=== PATIENT | female | born 1985 | race Caucasian/White ===

== ENCOUNTER 2021-01-11 09:16 | Inpatient (IN) | payer OTHER ==
[~2021-01-11] VITALS: Ht 154.9 cm; Wt 74.4 kg
[2021-01-11 11:49] LABS: HEMOGLOBIN 14.9 gm/dl (12.3-15.3); RED BLOOD COUNT 4.88 M/UL (4.00-5.10); WHITE BLOOD COUNT 26.2 K/UL (4.5-11.0)
[2021-01-11 12:10] LABS: BUN/CREATININE RATIO 15 (0-10)
[2021-01-11] MEDS ORDERED: OMEPRAZOLE40 MG PO (16:19)
[2021-01-11] MEDS ORDERED: VITAMIN D21250 MCG PO (16:19)
[2021-01-11] MEDS ORDERED: PAXIL 20 MG TAB20 MG PO (16:20)
[2021-01-11] MEDS ORDERED: BUSPIRONE HCL10 MG PO (16:20)
[2021-01-11] MEDS ORDERED: CYCLOBENZAPRINE10 MG PO (16:21)
[2021-01-11] MEDS ORDERED: SEROQUEL50 MG PO (16:21)
[2021-01-11] MEDS ORDERED: CYANOCOBAL1000 MCG/1 INJ (16:22)
[2021-01-11] MEDS ORDERED: CRESTOR 10 MG T10 MG PO (16:22)
[2021-01-11] MEDS ORDERED: VOLTAREN EC 2525 MG PO (16:22)
[2021-01-11] MEDS ORDERED: HYDROXYZINE HCL25 MG PO (16:23)
[2021-01-11] MEDS ORDERED: VITAMIN C500 M2 PO (16:23)
[2021-01-11] MEDS ORDERED: VENTOLIN HFA 66.7 GM INH (16:24)
[2021-01-12 05:33] LABS: BUN/CREATININE RATIO 10 (0-10)
[2021-01-12 05:49] LABS: HEMOGLOBIN 12.1 gm/dl (12.3-15.3); RED BLOOD COUNT 4.03 M/UL (4.00-5.10); WHITE BLOOD COUNT 17.2 K/UL (4.5-11.0)
[2021-01-13 06:31] LABS: HEMOGLOBIN 11.5 gm/dl (12.3-15.3); RED BLOOD COUNT 3.87 M/UL (4.00-5.10)
[2021-01-13 07:46] LABS: BUN/CREATININE RATIO 8 (0-10)
[2021-01-14 06:13] LABS: BUN/CREATININE RATIO 6 (0-10)
[2021-01-14 10:03] LABS: HEMOGLOBIN 11.5 gm/dl (12.3-15.3); RED BLOOD COUNT 3.96 M/UL (4.00-5.10)
[2021-01-14 10:09] LABS: WHITE BLOOD COUNT 8.3 K/UL (4.5-11.0)
[2021-01-15 04:26] LABS: HEMOGLOBIN 11.5 gm/dl (12.3-15.3); RED BLOOD COUNT 3.89 M/UL (4.00-5.10); WHITE BLOOD COUNT 8.3 K/UL (4.5-11.0)
[2021-01-15 05:02] LABS: BUN/CREATININE RATIO 6 (0-10)
[2021-01-16 06:31] LABS: HEMOGLOBIN 11.8 gm/dl (12.3-15.3)
[2021-01-16 06:55] LABS: BUN/CREATININE RATIO 8 (0-10)
[2021-01-16] MEDS ORDERED: FLAGYL500 MG PO (09:26)
[2021-01-16] MEDS ORDERED: CIPRO500 MG PO (09:26)
[2021-01-16] MEDS ORDERED: HYDROCODON-ACE1 EAC4 PO (10:46)
== END 2021-01-16 13:44 | disposition home or self-care (01) | DRG 871 ==
LOC: ER1 09:16 → CDU 15:25 → M/S 15:25
PROVIDERS: Physician Assistant; Surgery; ADMIT Internal Medicine
DX: A41.9 Sepsis, unspecified organism (principal); J18.9 Pneumonia, unspecified organism; A09 Infectious gastroenteritis and colitis, unspecified; K56.690 Other partial intestinal obstruction; Z20.822 Contact with and (suspected) exposure to COVID-19; E87.6 Hypokalemia; F41.9 Anxiety disorder, unspecified; K21.9 Gastro-esophageal reflux disease without esophagitis; E78.5 Hyperlipidemia, unspecified; F17.210 Nicotine dependence, cigarettes, uncomplicated; F31.9 Bipolar disorder, unspecified; Z98.51 Tubal ligation status; Z88.8 Allergy status to other drugs, medicaments and biological substances; Z56.0 Unemployment, unspecified
CPT/HCPCS: 36415; 71046; 74019; 80048; 80053; 80202; 81001; 83605; 83690; 83735; 84100; 84132; 84703; 85025; 85027; 87040; 94640; 94664; 94760; 96374; 96375; 99285; C9113; J1170; J1885; J2270; J2405; J2543; J3370; J7030; J7070; Q9967; U0002

== ENCOUNTER 2021-01-17 20:22 | Emergency (ER) | payer OTHER ==
[~2021-01-17 20:22] MED LIST: BUSPIRONE HCL10 MG PO; CIPRO500 MG PO; CRESTOR 10 MG T10 MG PO; CYANOCOBAL1000 MCG/1 INJ; CYCLOBENZAPRINE10 MG PO; FLAGYL500 MG PO; HYDROCODON-ACE1 EAC4 PO; HYDROXYZINE HCL25 MG PO; OMEPRAZOLE40 MG PO; PAXIL 20 MG TAB20 MG PO; SEROQUEL50 MG PO; VENTOLIN HFA 66.7 GM INH; VITAMIN C500 M2 PO; VITAMIN D21250 MCG PO; VOLTAREN EC 2525 MG PO
[2021-01-17 23:03] LABS: HEMOGLOBIN 13.6 gm/dl (12.3-15.3)
[2021-01-17 23:17] LABS: RED BLOOD COUNT 4.72 M/UL (4.00-5.10); WHITE BLOOD COUNT 11.4 K/UL (4.5-11.0)
[2021-01-17 23:19] LABS: BUN/CREATININE RATIO 10 (0-10)
[2021-01-18] MEDS ORDERED: [UNRECOGNIZED DRUG - OTHER] (04:47)
[2021-01-18] MEDS ORDERED: ZOFRAN ODT 4 MG4 MG GT (04:47)
== END 2021-01-18 05:00 | disposition home or self-care (01) ==
LOC: ER1 20:22
PROVIDERS: Physician Assistant
DX: R10.9 Unspecified abdominal pain (principal); R10.814 Left lower quadrant abdominal tenderness; R19.7 Diarrhea, unspecified; K21.9 Gastro-esophageal reflux disease without esophagitis; E78.5 Hyperlipidemia, unspecified; Z20.822 Contact with and (suspected) exposure to COVID-19; G43.909 Migraine, unspecified, not intractable, without status migrainosus; F17.200 Nicotine dependence, unspecified, uncomplicated; Z91.048 Other nonmedicinal substance allergy status
CPT/HCPCS: 71046; 80053; 81001; 83690; 84703; 85025; 85379; 96374; 96375; 99285; J2270; J2405; Q9967; U0002

== ENCOUNTER → 2021-03-07 | Outpatient (CLI) | payer OTHER ==
[~2021-03-07] MED LIST changes: +ZOFRAN ODT 4 MG4 MG GT; +[UNRECOGNIZED DRUG - OTHER]
[2021-03-07 11:20] LABS: RED BLOOD COUNT 4.4 M/UL (4.00-5.10); WHITE BLOOD COUNT 9.2 K/UL (4.5-11.0)
[2021-03-07 11:46] LABS: BUN/CREATININE RATIO 16 (0-10)
[2021-03-08 14:13] LABS: IMMUNOGLOBULIN A, QN, SERUM 108 mg/dL (87-352); T-TRANSGLUTAMINASE (TTG) IGA <2 U/mL (0-3); T-TRANSGLUTAMINASE (TTG) IGG <2 U/mL (0-5)
== END ==
LOC: LAB 10:21
PROVIDERS: Physician Assistant
DX: K92.0 Hematemesis (principal)
CPT/HCPCS: 36415; 80053; 82784; 83690; 85025